=== PATIENT | female | born 1960 | race Two or more races ===

== ENCOUNTER 2019-07-07 08:00 | Outpatient (CLI) | payer MEDICAID ==
[2016-08-24 14:10] VITALS: BMI 28.8
[~2019-07-07 08:00] MED LIST: BACTRIM DS TABL1 TAB PO; IBUPROFEN800 MG PO; OXYCODONE HCL10 MG PO; PRILOSEC20 MG PO; ULTRAM50 MG PO; VIBRAMYCIN 100100 MG PO
== END 2019-07-07 23:59 | disposition home or self-care (01) ==
LOC: D.MAMMO 08:00
PROVIDERS: ATTEND Family Medicine
DX: Z12.31 Encounter for screening mammogram for malignant neoplasm of breast (principal)